=== PATIENT | male | born 1990 | race Caucasian/White ===

== ENCOUNTER 2017-05-02 21:50 | Emergency (ER) | payer OTHER ==
[~2017-05-02] VITALS: Ht 177.8 cm; Wt 71.6 kg
[2017-05-02 21:52] VITALS: BP 185/118; PULSE 74; RESP 16; TEMP 98.2; O2SAT 99
[2017-05-02] MEDS ORDERED: SODIUM CHLOR 0.9% 1000 ML INJ 1,000 ML IV ONE ×2 (22:15)
--- NOTE | 2017-05-02 22:17 | PD ---
HPI Chief Complaint: Dizziness Time Seen by Provider: 22:10 Travel History International Travel<30 days: No Contact w/Intl Traveler<30days: No Traveled to known affect area: No History of Present Illness HPI This 27-year-old male presents with complaints of dehydration. He works at [employer]. 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 He says he was sweating profusely today and was very hot he had an episode where he felt he in the epigastric area. His hands cramped up and he had pins and needles in his fingers. He felt very lightheaded. Paramedics were called and told him his blood pressure was quite elevated. He is not on any medications. He says that his blood pressure is often elevated though he has never been treated for hypertension. He vomited once so he is not nauseated now [facility] Past Medical History Medical other: Yes (CHILDHOOD CHICKENPOX) Influenza Vaccination: No Past Surgical History AICD: No Body Medical Devices: METAL PLATE IN RIGHT JAW Joint Replacement: No Oral Surgery: Yes (DENTAL SX) Pacemaker: No Other Surgery: Yes Social History Alcohol Use: Yes ("EVERY NIGHT, LIQUOR AND BEER") Tobacco Use: No (QUIT AGE 18) Substance Use: No Allergies-Medications (Allergen,Severity, Reaction): Coded Allergies: Penicillin (Verified Allergy, Mild, 05/02/17) Reported Meds & Prescriptions Reported Meds & Active Scripts Active Lisinopril 10 Mg Tab 10 Mg PO DAILY Review of Systems General / Constitutional: No: Fever, Chills Eyes: No: Diploplia, Blurred Vision HENT: Positive: Vertigo, Lightheadedness, No: Headaches Cardiovascular: No: Chest Pain or Discomfort, Palpitations Respiratory: No: Cough, Shortness of Breath Gastrointestinal: Positive: Nausea, No: Vomiting Genitourinary: No: Urgency, Frequency Musculoskeletal: No: Myalgias, Arthralgias Skin: No Rash Neurologic: Positive: Weakness, Dizziness Hematologic/Lymphatic: No: Easy Bruising Physical Exam Narrative GENERAL: Well-developed male SKIN: Focused skin assessment warm/dry. HEAD: Atraumatic. Normocephalic. EYES: Pupils equal and round. No scleral icterus. No injection or drainage. ENT: No nasal bleeding or discharge. Mucous membranes pink and moist. NECK: Trachea midline. No JVD. CARDIOVASCULAR: Regular rate and rhythm. No murmur appreciated. RESPIRATORY: No accessory muscle use. Clear to auscultation. Breath sounds equal bilaterally. GASTROINTESTINAL: Abdomen soft, non-tender, nondistended. Hepatic and splenic margins not palpable. MUSCULOSKELETAL: No obvious deformities. No clubbing. No cyanosis. No edema. NEUROLOGICAL: Awake and alert. No obvious cranial nerve deficits. Motor grossly within normal limits. Normal speech. PSYCHIATRIC: Appropriate mood and affect; insight and judgment normal. Data Data Last Documented VS Vital Signs Date Time Temp Pulse Resp B/P Pulse Ox O2 Delivery O2 Flow Rate FiO2 05/02/17 22:37 85 208/121 100 Room Air 05/02/17 21:52 98.2 16 Orders Complete Blood Count With Diff (05/02/17 22:11) Basic Metabolic Panel (Bmp) (05/02/17 22:11) Sodium Chlor 0.9% 1000 Ml Inj (Ns 1000 M (05/02/17 22:15) Sodium Chlor 0.9% 1000 Ml Inj (Ns 1000 M (05/02/17 22:15) Clonidine (Catapres) (05/02/17 22:45) Potassium Chloride (Kcl) (05/02/17 23:00) Labs Laboratory Tests Test 05/02/17 22:20 White Blood Count 14.1 TH/MM3 Red Blood Count 4.98 MIL/MM3 Hemoglobin 14.8 GM/DL Hematocrit 43.2 % Mean Corpuscular Volume 86.8 FL Mean Corpuscular Hemoglobin 29.7 PG Mean Corpuscular Hemoglobin 34.3 % Concent Red Cell Distribution Width 11.6 % Platelet Count 196 TH/MM3 Mean Platelet Volume 8.5 FL Neutrophils (%) (Auto) 86.0 % Lymphocytes (%) (Auto) 6.0 % Monocytes (%) (Auto) 5.9 % Eosinophils (%) (Auto) 0.3 % Basophils (%) (Auto) 1.8 % Neutrophils # (Auto) 12.2 TH/MM3 Lymphocytes # (Auto) 0.8 TH/MM3 Monocytes # (Auto) 0.8 TH/MM3 Eosinophils # (Auto) 0.0 TH/MM3 Basophils # (Auto) 0.3 TH/MM3 CBC Comment DIFF FINAL Differential Comment Sodium Level 135 MEQ/L Potassium Level 3.3 MEQ/L Chloride Level 98 MEQ/L Carbon Dioxide Level 27.4 MEQ/L Anion Gap 10 MEQ/L Blood Urea Nitrogen 15 MG/DL Creatinine 1.00 MG/DL Estimat Glomerular Filtration 90 ML/MIN Rate Random Glucose 104 MG/DL Calcium Level 9.5 MG/DL [facility] Medical Decision Making Medical Screen Exam Complete: Yes Emergency Medical Condition: Yes Medical Record Reviewed: Yes Differential Diagnosis Differential includes dehydration, heat cramps, heat exhaustion Narrative Course Patient been given 2 L of IV fluids. His blood pressure has been elevated and he says that his blood pressure is always elevated when checked. He will be started on lisinopril and recommended follow-up at the clinic. His potassium is low and be supplemented. Diagnosis Primary Impression: Dehydration Additional Impression: Hypertension Qualified Code: I10 - Essential hypertension Scripts Lisinopril 10 Mg Tab10 Mg PO DAILY #30 TAB Ref 0 Prov:Enmanuel Lema MD 05/02/17 Disposition: 01 DISCHARGE HOME Condition: Stable Enmanuel Lema MD May 02, 2017 22:17
[2017-05-02 22:27] LABS: AUTOMATED NEUTROPHIL # 12.2 TH/MM3 (1.8-7.7); BASOPHIL # 0.3 TH/MM3 (0-0.2); BASOPHIL % 1.8 % (0.0-2.0); EOSINOPHIL % 0.3 % (0.0-4.0); HEMATOCRIT 43.2 % (39.0-51.0); HEMO FLAGS DIFF FINAL; LYMPHOCYTE # 0.8 TH/MM3 (1.0-4.8); MEAN CELL VOLUME 86.8 FL (80.0-100.0); MEAN CORPUSCULAR HEMOGLOBIN 29.7 PG (27.0-34.0); MEAN CORPUSCULAR HGB CONC 34.3 % (32.0-36.0); MONO % 5.9 % (0.0-8.0); PLATELET COUNT 196 TH/MM3 (150-450); RED BLOOD COUNT 4.98 MIL/MM3 (4.50-5.90); RED CELL DISTRIBUTION WIDTH 11.6 % (11.6-17.2); WHITE BLOOD COUNT 14.1 TH/MM3 (4.0-11.0)
[2017-05-02 22:33] LABS: POTASSIUM 3.3 MEQ/L (3.5-5.1)
[2017-05-02 22:37] VITALS: BP 208/121; PULSE 85; O2SAT 100
[2017-05-02 22:37] LABS: BICARBONATE 27.4 MEQ/L (21.0-32.0)
[2017-05-02] MEDS ORDERED: cloNIDine HCL 0.1 MG TAB PO ONE (22:45)
[2017-05-02] MEDS ORDERED: LISI10TA3 PO (22:45)
[2017-05-02] MEDS ORDERED: POTASSIUM CHLORIDE 20 MEQ CONTROLLED RELEASE TAB PO ONE (23:00)
[2017-05-02 23:23] VITALS: BP_SYST 175; BP_SYST 178; BP_DIAS 107; BP_DIAS 108
== END 2017-05-02 23:28 | disposition home or self-care (01) ==
LOC: PHED 21:50
DX: E86.0 Dehydration (principal); R03.0 Elevated blood-pressure reading, without diagnosis of hypertension
CPT/HCPCS: 80048; 85025; 96360; 99284; J7030

== ENCOUNTER 2017-05-17 16:02 | Emergency (ER) | payer SELFPAY ==
[~2017-05-17] VITALS: Ht 177.8 cm; Wt 71.0 kg
[~2017-05-17 16:02] MED LIST: LISI10TA3 PO
[2017-05-17 16:06] VITALS: BP 163/108; PULSE 91; RESP 15; TEMP 97.9; O2SAT 98
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
--- NOTE | 2017-05-17 16:41 | RADRPT ---
EXAM DATE/TIME: 05/17/2017 16:32 [facility] COMPARISON: No previous studies available for comparison. INDICATIONS : Right sided chest and shoulder pain for 6 hours with no known injury MEDICAL HISTORY : None. SURGICAL HISTORY : None. ENCOUNTER: Initial ACUITY: 1 day PAIN SCORE: 8/10 LOCATION: Right chest FINDINGS: A single view of the chest demonstrates the lungs to be symmetrically aerated without evidence of mas s, infiltrate or effusion. No evidence of pneumothorax. The cardiomediastinal contours are unremark able. Osseous structures are intact. CONCLUSION: The lungs are clear. Jan Cox MD on May 17, 2017 at 16:39 Board Certified Radiologist. This report was verified electronically.
== END 2017-05-17 17:14 | disposition home or self-care (01) ==
LOC: PHEFT 16:02
DX: M54.9 Dorsalgia, unspecified (principal); G89.29 Other chronic pain; Z88.0 Allergy status to penicillin; I10 Essential (primary) hypertension
CPT/HCPCS: 71010; 99283

== ENCOUNTER 2017-06-21 17:50 | Emergency (ER) | payer OTHER ==
[~2017-06-21] VITALS: Ht 177.8 cm; Wt 69.6 kg
[2017-06-21 19:33] VITALS: BP 178/101; PULSE 92; RESP 18; TEMP 99.4; O2SAT 98
[2017-06-21] MEDS ORDERED: SODIUM CHLOR 0.9% 1000 ML INJ 1,000 ML IV SCH (19:36)
[2017-06-21 19:44] VITALS: RESP 18; O2SAT 98
[2017-06-21] MEDS ORDERED: MORPHINE SULFATE 8 MG/ML INJ IV PUSH ONE (19:45)
[2017-06-21] MEDS ORDERED: SODIUM CHLORIDE 0.9% FLUSH 10 ML FLUSH IV FLUSH PRN (19:45)
[2017-06-21] MEDS ORDERED: ONDANSETRON HCL 4 MG/2 ML VIAL IVP ONE (19:45)
--- NOTE | 2017-06-21 19:45 | PD ---
HPI Chief Complaint: Abdominal Pain Time Seen by Provider: 19:36 Travel History International Travel<30 days: No Contact w/Intl Traveler<30days: No Traveled to known affect area: No History of Present Illness HPI 27-year-old male presents to the emergency department by private transportation the care of his mother for evaluation of heat exhaustion, nausea with 1 episode of vomiting, periumbilical abdominal pain, approximately 1 month of constipation like symptoms with change in bowel activity and burning with urination. Patient denies fever or chills. Patient's had no headache visual disturbance change in mentation sinus pressure drainage sore throat earache neck pain chest pain shortness of breath flank pain joint pain or swelling or skin rash. Patient denies urinary frequency urgency hematuria or flank pain. Patient has not noticed any hematemesis coffee-ground emesis melena or hematochezia. Patient states that he continues to have bowel movements but the stool is vinh-like in consistency. Patient recently within the past month has been diagnosed with high blood pressure but has not followed up in clinic to have it monitored. Patient admits to nightly alcohol consumption. Patient states he's continued tobacco use at age 18. Patient does have family of hypertension. Patient denies any chronic medical conditions. Patient is unable to identify exacerbating or alleviating factors. Patient states today symptoms of exhaustion occurred while he was at work and he works out of doors and felt himself becoming overheated and felt as if he might pass out but did not have a syncopal episode. Patient was able to sit down in a cool environment drink some water apply some cool compresses attempted to eat an orange with subsequently had a one-time episode of vomiting. Patient vomited stomach contents. No report of dietary indiscretion well water ingestion or foreign travel. No other coworkers or similar symptoms. Patient states he was seen in the emergency department one month ago for reading overheated and dehydration. Patient is also concerned that he has an umbilical hernia. [facility] Past Medical History Narrative Medical Hypertension, jaw surgery, hand surgery; alcohol use prior tobacco use; nursing notes reviewed Diminished Hearing: No Tetanus Vaccination: < 5 Years Influenza Vaccination: No Past Surgical History AICD: No Body Medical Devices: METAL PLATE IN RIGHT JAW Joint Replacement: No Oral Surgery: Yes (DENTAL SX) Pacemaker: No Other Surgery: Yes Social History Alcohol Use: Yes ("EVERY NIGHT, LIQUOR AND BEER") Tobacco Use: No (QUIT AGE 18) Substance Use: No Allergies-Medications (Allergen,Severity, Reaction): Coded Allergies: Penicillin (Verified Allergy, Mild, 06/21/17) Reported Meds & Prescriptions Reported Meds & Active Scripts Active Zofran Odt (Ondansetron Odt) 4 Mg Tab 4 Mg SL Q6HR PRN Lisinopril 10 Mg Tab 10 Mg PO DAILY Clonidine (Clonidine HCl) 0.1 Mg Tab 0.1 Mg PO Q12HR PRN Review of Systems Except as stated in HPI: all other systems reviewed are Neg General / Constitutional: No: Fever, Chills HENT: No: Headaches, Sore Throat, Congestion, Neck Pain Cardiovascular: Positive: Diaphoresis, No: Chest Pain or Discomfort, Syncope Respiratory: No: Shortness of Breath Gastrointestinal: Positive: Nausea, Vomiting (x1), Abdominal Pain ( periumbilical), Constipation (decreased episodes of bowel movements that appear to be claylike inconsistency), No: Diarrhea, Hematemesis, Hematochezia, Loss of Appetite Genitourinary: Positive: Dysuria, No: Urgency, Frequency, Hematuria, Flank Pain, Discharge Musculoskeletal: Positive: Myalgias, Arthralgias Skin: No Rash Neurologic: Positive: Weakness, Dizziness, No: Syncope, Focal Abnormalities, Coordination Problem Psychiatric: Positive: Other (alcohol use), No: Anxiety Hematologic/Lymphatic: No: Easy Bruising Physical Exam Narrative GENERAL: Well-developed well-nourished male in no acute distress no respiratory distress SKIN: Warm and dry. HEAD: Atraumatic. Normocephalic. EYES: Pupils equal and round. No scleral icterus. No injection or drainage. ENT: No nasal bleeding or discharge. Mucous membranes pink and moist. NECK: Trachea midline. No JVD. CARDIOVASCULAR: Regular rate and rhythm. RESPIRATORY: No accessory muscle use. Clear to auscultation. Breath sounds equal bilaterally. GASTROINTESTINAL: Abdomen soft, periumbilical tenderness to palpation without guarding or rebound, nondistended. Hepatic and splenic margins not palpable. MUSCULOSKELETAL: Extremities without clubbing, cyanosis, or edema. No obvious deformities. NEUROLOGICAL: Awake and alert. No obvious cranial nerve deficits. Motor grossly within normal limits. Five out of 5 muscle strength in the arms and legs. Normal speech. PSYCHIATRIC: Appropriate mood and affect; insight and judgment normal. Data Data Last Documented VS Vital Signs Date Time Temp Pulse Resp B/P Pulse Ox O2 Delivery O2 Flow Rate FiO2 06/22/17 00:34 92 18 98 06/22/17 00:33 149/95 Room Air 06/21/17 19:33 99.4 Orders Complete Blood Count With Diff (06/21/17 19:36) Comprehensive Metabolic Panel (06/21/17 19:36) Lipase (06/21/17 19:36) Lactic Acid (06/21/17 19:36) Urinalysis - C+S If Indicated (06/21/17 19:36) Ct Abd/Pel W Iv Contrast(Rout) (06/21/17 19:36) Iv Access Insert/Monitor (06/21/17 19:36) Ecg Monitoring (06/21/17 19:36) Oximetry (06/21/17 19:36) Ondansetron Inj (Zofran Inj) (06/21/17 19:45) Sodium Chlor 0.9% 1000 Ml Inj (Ns 1000 M (06/21/17 19:36) Sodium Chloride 0.9% Flush (Ns Flush) (06/21/17 19:45) Electrocardiogram (06/21/17 19:36) Morphine Inj (Morphine Inj) (06/21/17 19:45) Alcohol (Ethanol) (06/21/17 19:36) Magnesium (Mg) (06/21/17 19:36) Iohexol 350 Inj (Omnipaque 350 Inj) (06/21/17 20:44) Hydralazine Inj (Apresoline Inj) (06/21/17 22:00) Clonidine (Catapres) (06/21/17 22:30) Labs Laboratory Tests Test 06/21/17 20:00 White Blood Count 11.2 TH/MM3 Red Blood Count 5.49 MIL/MM3 Hemoglobin 16.1 GM/DL Hematocrit 47.7 % Mean Corpuscular Volume 86.9 FL Mean Corpuscular Hemoglobin 29.3 PG Mean Corpuscular Hemoglobin 33.7 % Concent Red Cell Distribution Width 11.6 % Platelet Count 224 TH/MM3 Mean Platelet Volume 8.7 FL Neutrophils (%) (Auto) 84.9 % Lymphocytes (%) (Auto) 8.8 % Monocytes (%) (Auto) 5.9 % Eosinophils (%) (Auto) 0.1 % Basophils (%) (Auto) 0.3 % Neutrophils # (Auto) 9.5 TH/MM3 Lymphocytes # (Auto) 1.0 TH/MM3 Monocytes # (Auto) 0.7 TH/MM3 Eosinophils # (Auto) 0.0 TH/MM3 Basophils # (Auto) 0.0 TH/MM3 CBC Comment DIFF FINAL Differential Comment Urine Color YELLOW Urine Turbidity CLEAR Urine pH 7.0 Urine Specific [place] 1.011 Urine Protein NEG mg/dL Urine Glucose (UA) NEG mg/dL Urine Ketones 40 mg/dL Urine Occult Blood NEG Urine Nitrite NEG Urine Bilirubin NEG Urine Leukocyte Esterase NEG Urine RBC 0-2 /hpf Urine WBC 0-2 /hpf Urine Squamous Epithelial 0-5 /hpf Cells Urine Bacteria NONE /hpf Microscopic Urinalysis Comment CULT NOT INDICATED Sodium Level 134 MEQ/L Potassium Level 3.9 MEQ/L Chloride Level 98 MEQ/L Carbon Dioxide Level 25.7 MEQ/L Anion Gap 10 MEQ/L Blood Urea Nitrogen 9 MG/DL Creatinine 0.83 MG/DL Estimat Glomerular Filtration 111 ML/MIN Rate Random Glucose 86 MG/DL Lactic Acid Level 1.4 mmol/L Calcium Level 10.4 MG/DL Magnesium Level 1.8 MG/DL Total Bilirubin 0.8 MG/DL Aspartate Amino Transf 49 U/L (AST/SGOT) Alanine Aminotransferase 61 U/L (ALT/SGPT) Alkaline Phosphatase 59 U/L Total Protein 9.3 GM/DL Albumin 5.0 GM/DL Lipase 198 U/L Ethyl Alcohol Level LESS THAN 3 MG/DL [facility] Medical Decision Making Medical Screen Exam Complete: Yes Emergency Medical Condition: Yes Medical Record Reviewed: Yes Interpretation(s) EKG: Normal sinus rhythm rate [address] elevation or injury pattern change noted, voltage criterion for LVH Lactic acid: 1.4, not elevated Last Impressions Abdomen/Pelvis CT 06/21/171935 Signed Impressions: Service Date/Time: Wednesday, June 21, 2017 20:50 - CONCLUSION: 1. Tiny nonobstructing right renal calculus measuring 1-2 mm in the midpole. No acute findings within the abdomen or pelvis. Mild fatty liver. Shen Bowles MD CBC & BMP Diagram 06/21/17 20:00 Differential Diagnosis Heat exhaustion, dehydration, electronic disturbance, rhabdomyolysis, arrhythmia , near syncope/syncope, abdominal pain, umbilical herniorrhaphy, gastritis, pancreatitis, hepatitis, alcohol withdrawal, uncontrolled hypertension Narrative Course IV access obtained specimens collected and sent for resulting; patient administered Zofran 4 mg IV morphine sulfate 3 mg IV and IV fluid bolus; EKG ordered reveals no acute ST elevation or injury pattern change or ectopy LVH is noted by voltage criteria and and imaging study ordered CBC with automated differential grossly within normal limits chemistries grossly within normal range except some mild elevation of serum calcium and serum protein urinalysis grossly within normal range serum alcohol level III, not elevated CT abdomen and pelvis reading per reading radiologist Dr. Shen Bowles tiny nonobstructing right renal calculus measuring 1-2 millimeter in the mid pole no acute findings within the abdomen or pelvis fatty liver Patient remains hypertensive administered hydralazine 10 mg IV Patient denies any abdominal pain denies any nausea denies any vomiting after receiving Zofran IV fluid feels well patient denies any abdominal pain after morphine sulfate 2 mg IV however does remain hypertensive and after receiving hydralazine heart rate has again increased and patient has become tachycardic most likely as a side effect of the medication. Patient remains hypertensive. Patient will be given clonidine 0.1 mg by mouth Patient is stable for outpatient management again is provided prescription for antihypertensive and encouraged to follow-up with clinic. It is now 12:15 AM patient feels clinically improved blood pressure has improved somewhat however remains hypertensive patient given prescription for lisinopril 10 mg daily as well as an as needed clonidine 0.1 mg every 12 hours for blood pressure 185/90. Patient is aware of need for close follow-up with primary care provider regarding blood pressure and to increase fluid hydration as well as 1 day off work for recovery. Diagnosis Primary Impression: Abdominal pain Qualified Code: R10.84 - Generalized abdominal pain Additional Impressions: Dehydration Hypertension Qualified Code: I10 - Essential hypertension Referrals: [facility] call for appointment Primary Care Physician Patient Instructions: General Instructions Departure Forms: Tests/Procedures, Work Release Special Instructions: no work x 1 day Additional Instructions: Increase fluid hydration No work times one day Take medication as prescribed as needed for nausea and/or vomiting May take ibuprofen/Advil/Motrin per package instructions as needed for any associated with inflammation Take antihypertensive medication as prescribed for blood pressure Follow-up with primary care provider Return to the emergency department for any concerns or change in condition Med/Other Pt SpecificInfo: Prescription(s) given Scripts Ondansetron Odt (Zofran Odt)4 Mg Tab4 Mg SL Q6HR PRN (Nausea/Vomiting) #10 TAB Ref 0 Prov:Leeanne Ambriz MD 06/22/17 Lisinopril 10 Mg Tab10 Mg PO DAILY #30 TAB Ref 0 Prov:Leeanne Ambriz MD 06/22/17 Clonidine 0.1 Mg Tab0.1 Mg PO Q12HR PRN (SBP>180, DBP>95) #6 TAB Ref 0 Prov:Leeanne Ambriz MD 06/22/17 Disposition: 01 DISCHARGE HOME Condition: Stable Leeanne Ambriz MD Jun 21, 2017 19:45
[2017-06-21 20:17] LABS: AUTOMATED NEUTROPHIL # 9.5 TH/MM3 (1.8-7.7); BASOPHIL % 0.3 % (0.0-2.0); EOSINOPHIL % 0.1 % (0.0-4.0); HEMATOCRIT 47.7 % (39.0-51.0); HEMO FLAGS DIFF FINAL; LYMPH % 8.8 % (9.0-44.0); MEAN CELL VOLUME 86.9 FL (80.0-100.0); MEAN CORPUSCULAR HEMOGLOBIN 29.3 PG (27.0-34.0); MEAN CORPUSCULAR HGB CONC 33.7 % (32.0-36.0); MONO % 5.9 % (0.0-8.0); NEUT % 84.9 % (16.0-70.0); PLATELET COUNT 224 TH/MM3 (150-450); RED BLOOD COUNT 5.49 MIL/MM3 (4.50-5.90); RED CELL DISTRIBUTION WIDTH 11.6 % (11.6-17.2); WHITE BLOOD COUNT 11.2 TH/MM3 (4.0-11.0)
[2017-06-21 20:20] LABS: BLOOD, URINE NEG (NEG); GLUCOSE,URINE NEG (NEG); KETONE, URINE 40 mg/dL (NEG); NITRITE,URINE NEG (NEG)
[2017-06-21 20:21] LABS: URINE COLOR YELLOW (YELLW/STRAW)
[2017-06-21 20:24] LABS: COMMENT (UR) CULT NOT INDICATED; CULTURE IF INDICATED CULT NOT INDICATED; RBC, URINE 0-2 /hpf (0-3); SQUAMOUS EPITHELIAL CELL URINE 0-5 /hpf (0-5); WBC, URINE 0-2 /hpf (0-5)
[2017-06-21 20:26] LABS: CHLORIDE 98 MEQ/L (98-107); POTASSIUM 3.9 MEQ/L (3.5-5.1); SODIUM (NA) 134 MEQ/L (136-145)
[2017-06-21 20:30] LABS: ANION GAP 10 MEQ/L (5-15); BICARBONATE 25.7 MEQ/L (21.0-32.0); BLOOD UREA NITROGEN 9 MG/DL (7-18); MAGNESIUM 1.8 MG/DL (1.5-2.5)
[2017-06-21 20:33] LABS: ALT (GPT) 61 U/L (12-78); AST (GOT) 49 U/L (15-37); GLOMERULAR FILTRATION RATE 111 ML/MIN (>89)
[2017-06-21 20:34] LABS: TOTAL BILIRUBIN ADULT 0.8 MG/DL (0.2-1.0)
[2017-06-21 20:36] LABS: ALKALINE PHOSPHATASE 59 U/L (45-117)
[2017-06-21 20:41] LABS: ALCOHOL LESS THAN 3 MG/DL (0-5)
[2017-06-21] MEDS ORDERED: IOHEXOL 350 MG/ML 10 ML VIAL (for RAD DIAG) IV ONE (20:44)
[2017-06-21 21:04] VITALS: BP 170/96; PULSE 86; RESP 18; O2SAT 98
[2017-06-21] MEDS ORDERED: hydrALAZINE HCL 20 MG/ML VIAL IV PUSH ONE (22:00)
--- NOTE | 2017-06-21 22:16 | RADRPT ---
EXAM DATE/TIME: 06/21/2017 20:50 [facility] COMPARISON: No previous studies available for comparison. INDICATIONS : Painful urination, dehydration and stomach cramps. IV CONTRAST: 96 cc Omnipaque 350 (iohexol) IV ORAL CONTRAST: No oral contrast ingested. RADIATION DOSE: 5.18 CTDIvol (mGy) MEDICAL HISTORY : None SURGICAL HISTORY : None. ENCOUNTER: Initial ACUITY: 2 weeks PAIN SCALE: 6/10 LOCATION: Bilateral flank TECHNIQUE: Volumetric scanning of the abdomen and pelvis was performed. Using automated exposure control and ad justment of the mA and/or kV according to patient size, radiation dose was kept as low as reasonably achievable to obtain optimal diagnostic quality images. DICOM format image data is available electro nically for review and comparison. FINDINGS: Lung bases are clear. Mild fatty liver. No acute findings in the spleen, adrenals, kidneys and pancre as. No calcified gallstones or biliary ductal dilatation. There is no bowel obstruction. No free air or free fluid. No adenopathy in the abdomen and pelvis. No acute bony abnormalities. There is a tiny nonobstructing right renal calculus. CONCLUSION: 1. Tiny nonobstructing right renal calculus measuring 1-2 mm in the midpole. No acute findings within the abdomen or pelvis. Mild fatty liver. Shen Bowles MD on June 21, 2017 at 22:10 Board Certified Radiologist. This report was verified electronically.
[2017-06-21] MEDS ORDERED: cloNIDine HCL 0.1 MG TAB PO ONE (22:30)
[2017-06-21 22:54] VITALS: BP 180/100; PULSE 84; RESP 18; O2SAT 98
[2017-06-21 23:30] VITALS: BP 170/90; PULSE 94; RESP 18; O2SAT 98
[2017-06-22] MEDS ORDERED: CLON0.1T PO (00:17)
[2017-06-22] MEDS ORDERED: ZOFR4TAB3 SL (00:17)
[2017-06-22] MEDS ORDERED: LISI10TA3 PO (00:17)
[2017-06-22 00:33] VITALS: BP 149/95; PULSE 92; RESP 18; O2SAT 98
--- NOTE | 2017-06-22 17:06 | EKG ---
Date Performed: 06/21/2017 Time Performed: 19:55:22 PTAGE: 27 years EKG: Sinus rhythm MODERATE VOLTAGE CRITERIA FOR LVH, CONSIDER NORMAL VARIANT BORDERLINE ECG NO PREVIOUS TRACING DOCTOR: Darien Camacho Interpretating Date/Time 06/22/2017 17:04:29
== END 2017-06-22 00:36 | disposition home or self-care (01) ==
LOC: PHED 17:50
DX: R10.84 Generalized abdominal pain (principal); E86.0 Dehydration; I10 Essential (primary) hypertension; K76.0 Fatty (change of) liver, not elsewhere classified; N20.0 Calculus of kidney; Z87.891 Personal history of nicotine dependence; Z79.899 Other long term (current) drug therapy
CPT/HCPCS: 74177; 80053; 80307; 81001; 83605; 83690; 83735; 85025; 93005; 96361; 96374; 96375; 99285; J0360; J2270; J2405; J7030; Q9967